=== PATIENT | female | born 1985 | race Caucasian/White ===

== ENCOUNTER 2017-07-22 | Emergency (ER) | payer SELFPAY ==
--- NOTE | 2017-07-22 19:39 | ER ---
Nurse's Notes [facility] Name: Lorelei Fleming Age: 32 yrs Sex: Female : 1985 Arrival Date: 07/22/2017 Time: 19:06 Bed Waiting Private MD: Diagnosis: Other chronic pain;Anxiety disorder, unspecified Presentation: 07/22 19:24 Presenting complaint: Patient states: Im having chest pain and shortness of breath. Im aj1 pretty sure its my anxiety. My back is hurting too. Im in the process of moving down here so I havn't been able to see my doctor and Im out of my medicine. I take Ultram for my back, and for my anxiety I take alprazolam. Denies palpitations, dizziness, synope. Transition of care: patient was not received from another setting of care. Onset of symptoms was July 22, 2017. Care prior to arrival: None. 19:24 Method Of Arrival: Ambulatory aj1 19:24 Acuity: SUJATA 4 aj1 Triage Assessment: 19:31 General: Appears in no apparent distress. comfortable, Behavior is calm, cooperative, aj1 appropriate for age. Pain: Complains of pain in chest Pain does not radiate. Pain currently is 7 out of 10 on a pain scale. Quality of pain is described as heavy, Pain began 1 hour ago. Cardiovascular: Reports chest pain, shortness of breath, Denies nausea, palpitations, syncope, vomiting, Patient's skin is warm and dry. 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 - Social history:: Smoking status: Patient/guardian denies using tobacco. Screenin:57 Abuse screen: Denies threats or abuse. Denies injuries from another. Nutritional aj1 screening: No deficits noted. Tuberculosis screening: No symptoms or risk factors identified. Fall Risk None identified. Assessment: 19:57 General: Appears in no apparent distress. comfortable, Behavior is calm, cooperative, aj1 appropriate for age. Pain: Complains of pain in chest Pain does not radiate. Pain: Pain began 2-3 days ago. Neuro: Neuro: Level of Consciousness is awake, alert, obeys commands, Oriented to person, place, time, situation, Speech is normal, Facial symmetry appears normal. Cardiovascular: Heart tones S1 S2 present Patient's skin is warm and dry. Rhythm is regular Chest pain is described as mild, is located in entire chest Patient states her chest pain feels like anxiety. Respiratory: Airway is patent Respiratory effort is even, unlabored, Respiratory pattern is regular, symmetrical, Breath sounds are clear bilaterally. the patient reports symptoms have resolved. GI: No signs and/or symptoms were reported involving the gastrointestinal system. : No signs and/or symptoms were reported regarding the genitourinary system. EENT: No signs and/or symptoms were reported regarding the EENT system. Derm: Skin is pink, warm \T\ dry. normal. Musculoskeletal: Circulation, motion, and sensation intact. Vital Signs: 19:31 BP 123 / 86; Pulse 80; Resp 16; Temp 98.1; Pulse Ox 99% ; Weight 85.28 kg; Height 5 ft. aj1 5 in. (165.10 cm); Pain 7/10; 19:31 Body Mass Index 31.28 (85.28 kg, 165.10 cm) aj1 ED Course: 19:06 Patient arrived in ED. mr 19:28 Triage completed. aj1 19:31 Arm band placed on. aj1 19:38 Jas Forrest MD is Attending Physician. snw 19:38 Sudha Souza FNP-C is PHCP. snw 19:57 Kalina Cespedes, EARLENE is Primary Nurse. aj1 19:57 Patient has correct armband on for positive identification. Cardiac monitoring not aj1 applicable on this patient. Patient discharged from triage. 19:57 No provider procedures requiring assistance completed. Patient did not have IV access aj1 during this emergency room visit. Patient maintains SpO2 saturation greater than 95% on room air. Administered Medications: No medications were administered Outcome: 19:38 Discharge ordered by . snw 19:57 Discharged to home ambulatory. aj1 19:57 Condition: good 19:57 Discharge instructions given to patient, Instructed on discharge instructions, follow up and referral plans. medication usage, Demonstrated understanding of instructions, follow-up care, medications, Prescriptions given X 1. 20:00 Patient left the ED. aj1 Signatures: Kalina Cespedes RN RN aj1 Sudha Souza, MAINSPRING REVERSE WINDER-C MAINSPRING REVERSE WINDER-Csnw Kiley Womack mr
--- NOTE | 2017-07-22 19:39 | EDPHYS ---
Physician Documentation [facility] Name: Lorelei Fleming Age: 32 yrs Sex: Female : 1985 Arrival Date: 07/22/2017 Time: 19:06 Bed Waiting Private MD: ED Physician Jas Forrest HPI: 07/22 20:07 This 32 yrs old Female presents to ER via Ambulatory with complaints of Chest snw Pain, Shortness Of Breath. 20:07 Onset: The symptoms/episode began/occurred gradually. Associated signs and symptoms: snw Pertinent positives: anxiety, chest discomfort, shortness of breath. Modifying factors: The patient symptoms are alleviated by remaining still, rest. The patient has experienced similar episodes in the past. pt has moved and has not yet re-established a physician. She was on pain and anxiety management and requests refills. . 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 - Social history:: Smoking status: Patient/guardian denies using tobacco. ROS: 20:07 Constitutional: Negative for fever, chills, and weight loss, Eyes: Negative for injury, snw pain, redness, and discharge, ENT: Negative for injury, pain, and discharge, Neck: Negative for injury, pain, and swelling, Cardiovascular: Negative for chest pain, palpitations, and edema, Respiratory: Negative for shortness of breath, cough, wheezing, and pleuritic chest pain, Abdomen/GI: Negative for abdominal pain, nausea, vomiting, diarrhea, and constipation, Back: Negative for injury and pain, : Negative for injury, bleeding, discharge, and swelling, MS/Extremity: Negative for injury and deformity, Skin: Negative for injury, rash, and discoloration, Neuro: Negative for headache, weakness, numbness, tingling, and seizure. 20:07 Psych: Positive for anxiety. Exam: 20:01 Constitutional: This is a well developed, well nourished patient who is awake, alert, snw and in no acute distress. Head/Face: Normocephalic, atraumatic. Eyes: Pupils equal round and reactive to light, extra-ocular motions intact. Lids and lashes normal. Conjunctiva and sclera are non-icteric and not injected. Cornea within normal limits. Periorbital areas with no swelling, redness, or edema. ENT: Nares patent. No nasal discharge, no septal abnormalities noted. Tympanic membranes are normal and external auditory canals are clear. Oropharynx with no redness, swelling, or masses, exudates, or evidence of obstruction, uvula midline. Mucous membranes moist. Neck: Trachea midline, no thyromegaly or masses palpated, and no cervical lymphadenopathy. Supple, full range of motion without nuchal rigidity, or vertebral point tenderness. No Meningismus. Chest/axilla: Normal chest wall appearance and motion. Nontender with no deformity. No lesions are appreciated. Cardiovascular: Regular rate and rhythm with a normal S1 and S2. No gallops, murmurs, or rubs. Normal PMI, no JVD. No pulse deficits. Respiratory: Lungs have equal breath sounds bilaterally, clear to auscultation and percussion. No rales, rhonchi or wheezes noted. No increased work of breathing, no retractions or nasal flaring. Abdomen/GI: Soft, non-tender, with normal bowel sounds. No distension or tympany. No guarding or rebound. No evidence of tenderness throughout. Back: No spinal tenderness. No costovertebral tenderness. Full range of motion. Skin: Warm, dry with normal turgor. Normal color with no rashes, no lesions, and no evidence of cellulitis. MS/ Extremity: Pulses equal, no cyanosis. Neurovascular intact. Full, normal range of motion. Psych: Awake, alert, with orientation to person, place and time. Behavior, mood, and affect are within normal limits. 20:01 Neuro: Exam negative for acute changes. 20:01 Psych: Behavior/mood is pleasant, cooperative, anxious, Affect is calm. Vital Signs: 19:31 BP 123 / 86; Pulse 80; Resp 16; Temp 98.1; Pulse Ox 99% ; Weight 85.28 kg; Height 5 ft. aj1 5 in. (165.10 cm); Pain 7/10; 19:31 Body Mass Index 31.28 (85.28 kg, 165.10 cm) aj1 MDM: 19:32 Data reviewed: vital signs, nurses notes. Data interpreted: Pulse oximetry: on room air snw is 96 %. Interpretation: acceptable. Counseling: I had a detailed discussion with the patient and/or guardian regarding: the historical points, exam findings, and any diagnostic results supporting the discharge/admit diagnosis, the need for outpatient follow up, to return to the emergency department if symptoms worsen or persist or if there are any questions or concerns that arise at home. Special discussion: Based on the history and exam findings, there is no indication for further emergent testing or inpatient evaluation. I discussed with the patient/guardian the need to see the primary care provider for further evaluation of the symptoms. 19:38 Patient medically screened. snw Administered Medications: No medications were administered Disposition: 20:09 ED visit for medication refill for chronic pain and anxiety. snw Disposition: 18 19:38 Discharged to Home. Impression: Other chronic pain, Anxiety disorder, unspecified. - Condition is Stable. - Discharge Instructions: Panic Attacks, Chronic Pain, Hypertension, Generalized Anxiety Disorder. - Prescriptions for Propranolol 10 mg Oral Tablet - take 1 tablet by ORAL route every 8 hours; 30 tablet. - Medication Reconciliation Form, Thank You Letter, Antibiotic Education, Prescription Opioid Use form. - Follow up: Private Physician; When: 2 - 3 days; Reason: Recheck today's complaints, Continuance of care, Re-evaluation by your physician. Addendum: 07/27/2017 06:26 Co-signature as Attending Physician, Jas Forrest MD. g s Signatures: Kalina Cespedes, RN RN aj1 Sudha Souza, ANIMAL TAXONOMIST-C ANIMAL TAXONOMIST-[place]w Jas Forrest MD MD
== END 2017-07-22 20:00 | disposition home or self-care (01) ==
CPT/HCPCS: 99284

== ENCOUNTER 2017-07-25 17:04 | Emergency (ER) | payer SELFPAY ==
[2017-07-25 18:50] LABS: Absolute Lymphocytes (CBC) 1.3 K/uL (0.7-4.9); Absolute Monocytes 0.3 K/uL (0.1-1.3); Absolute Neutrophil 6.2 K/uL (1.8-8.0); Basophils % 0.4 % (0-1.3); Eosinophils % 0.4 % (0-4.4); Lymphocytes % 16.1 % (15.3-44.8); MCH 30.6 pg (27.0-35.0); MCV 88.8 fL (80-100); Monocytes % 4.4 % (3.3-12.3)
[2017-07-25 18:59] LABS: Barbiturates NEGATIVE; Benzodiazepines POSITIVE; Cocaine NEGATIVE; Glucose Level 110 mg/dL (65-120); Lipase 17 U/L (22-51); Opiates NEGATIVE; Phencyclidine NEGATIVE; THC Cannibis NEGATIVE
[2017-07-25 19:00] LABS: METHAMPHETAM POSITIVE
[2017-07-25 19:05] LABS: ALT/SGPT 19 IU/L (10-60); AST/SGOT 17 IU/L (10-42); Albumin 4.7 g/dL (3.2-5.5); Alkaline Phosphatase 84 IU/L (42-121); BUN Blood Urea Nitrogen 7 mg/dL (6-20); Bilirubin Direct 0.1 mg/dL (0-0.2); Glomerular Filtration Rate > 90 mL/min (=/>90)
[2017-07-25] MEDS ORDERED: NA CHLORIDE 0.9% 1,000 ML ONE (19:05)
[2017-07-25 19:08] LABS: Bicarbonate 30 mEq/L (21-31); Sodium Level 136 mEq/L (135-145)
[2017-07-25 19:19] LABS: Urine Bacteria 20-50 /HPF (<20); Urine Culture Reflex Order NOT NEEDED; Urine Mucus 1+ /HPF (NONE SEEN); Urine RBC NONE SEEN /HPF (NONE SEEN)
[2017-07-25 19:34] LABS: Urine Blood NEGATIVE (NEG); Urine Glucose NEGATIVE (NEG); Urine Protein 2+ (NEG); Urine Specific Gravity >1.030 (1.005-1.030)
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
[2017-07-25] MEDS ORDERED: POTASSIUM CL SA 10 MEQ TAB PO ONE (20:16)
== END 2017-07-25 21:02 | disposition home or self-care (01) ==
LOC: ER 17:04
DX: R40.0 Somnolence (principal); Z79.899 Other long term (current) drug therapy; Z72.0 Tobacco use; Z88.6 Allergy status to analgesic agent; Z88.5 Allergy status to narcotic agent; Z88.8 Allergy status to other drugs, medicaments and biological substances; V49.40XA Driver injured in collision with unspecified motor vehicles in traffic accident, initial encounter
CPT/HCPCS: 36415; 80048; 80076; 80307; 81003; 81015; 83690; 85025; 96360; 99285; J7030